=== PATIENT | female | born 1970 | race Hispanic/Latino ===

== ENCOUNTER → 2020-02-19 | Day surgery (SDC) | payer OTHER ==
[~2020-02-19] MED LIST: CALAN SR180 MG PO; OR PHACO EYE KIT ONE; PREOP PHACO EYE KIT ONE
[2020-02-19 11:05] VITALS: BP 104/58
== END | disposition home or self-care (01) ==
LOC: OR 07:56
PROVIDERS: ATTEND Ophthalmology
DX: H25.13 Age-related nuclear cataract, bilateral (principal); I10 Essential (primary) hypertension; Z01.812 Encounter for preprocedural laboratory examination; Z20.828 Contact with and (suspected) exposure to other viral communicable diseases; Z79.899 Other long term (current) drug therapy
CPT/HCPCS: 66984; U0002

== ENCOUNTER → 2020-03-05 | Day surgery (SDC) | payer OTHER ==
[2020-03-05 15:37] VITALS: BP 110/71
== END | disposition home or self-care (01) ==
LOC: OR 11:50
PROVIDERS: ATTEND Ophthalmology
DX: H25.12 Age-related nuclear cataract, left eye (principal); I10 Essential (primary) hypertension; Z01.812 Encounter for preprocedural laboratory examination; Z20.828 Contact with and (suspected) exposure to other viral communicable diseases
CPT/HCPCS: 66984; U0002; V2632

== ENCOUNTER 2022-05-17 16:06 | Emergency (ER) | payer OTHER ==
[~2022-05-17] VITALS: Ht 149.9 cm; Wt 68.0 kg
[~2022-05-17 16:06] MED LIST changes: -OR PHACO EYE KIT ONE; -PREOP PHACO EYE KIT ONE
[2022-05-17] MEDS ORDERED: METRONIDAZOLE 500MG/NS 100ML 100 ML IV STA (16:27)
[2022-05-17] MEDS ORDERED: SODIUM CHLORIDE 0.9% 1000ML 1,000 ML IV STA (16:31)
[2022-05-17] MEDS ORDERED: ONDANSETRON HCL INJ 2MG/ML 2ML 2 MG/ML VIAL IV STA (16:32)
[2022-05-17] MEDS ORDERED: CEFTRIAXONE 1 GM VIAL IM ONE (16:45)
[2022-05-17] MEDS ORDERED: Morphine 4mg INJECTION 4 MG/ML INJ IV ONE (16:45)
[2022-05-17 16:49] LABS: BASOPHILS % 0.1 % (0.0-1.0); EOSINOPHILS % 0.5 % (0.0-6.0); HEMATOCRIT 45.5 % (34.2-44.1); HEMOGLOBIN 14.7 g/dL (12.0-16.0); LYMPHOCYTES # (AUTO) 0.7 (1.0-3.2); LYMPHOCYTES % 7.7 % (18.0-39.1); MEAN CORPUSCULAR HEMOGLOBIN 29.9 pg (28-32); MEAN CORPUSCULAR HGB CONC 32.3 g/dL (31-35); MEAN CORPUSCULAR VOLUME 92.7 fL (81-99); MONOCYTES # (AUTO) 0.6 (0.2-0.8); MONOCYTES % 6.9 % (4.4-11.3); NEUTROPHILS # (AUTO) 7.4 (2.1-6.9); NEUTROPHILS % 84.7 % (38.7-80.0); PLATELET COUNT 224 x10e3/uL (140-360); RED BLOOD COUNT 4.91 x10e6/uL (3.6-5.1); RED CELL DISTRIBUTION WIDTH 13.4 % (11.7-14.4)
[2022-05-17 17:00] LABS: ANION GAP 14.5 mmol/L (8-16); BLOOD UREA NITROGEN 17 mg/dL (7-26); BUN/CREATININE RATIO 25 (6-25); CALCIUM 8.4 mg/dL (8.4-10.2); CARBON DIOXIDE 27 mmol/L (22-29); CHLORIDE 104 mmol/L (98-107); CREATINE KINASE 71 IU/L (29-168); CREATININE, SERUM 0.69 mg/dL (0.57-1.11); GLUCOSE 110 mg/dL (74-118); POTASSIUM 3.5 mmol/L (3.5-5.1); SODIUM 142 mmol/L (136-145)
[2022-05-17 17:10] LABS: ALBUMIN 4.1 g/dL (3.5-5.0); BILIRUBIN,DIRECT 0.2 mg/dL (0.0-0.5)
[2022-05-17] MEDS ORDERED: IOPAMIDOL 370 MG/ML 100 ML INFUS..BTL INJ ONE (17:20)
[2022-05-17 17:50] LABS: CLARITY,URINE SL CLOUDY (CLEAR); COLOR,URINE YELLOW (YELLOW); KETONES,URINE 2+ (NEGATIVE); LEUKOCYTE ESTERASE ,URINE NEGATIVE (NEGATIVE); NITRITE,URINE NEGATIVE (NEGATIVE); PROTEIN,URINE DIPSTICK TRACE (NEGATIVE)
[2022-05-17 17:51] LABS: URINE UROBILINOGEN 0.2 mg/dL (0.2 - 1)
[2022-05-17 17:59] LABS: BACTERIA,URINE RARE /HPF; EPITHELIAL CELLS,URINE MODERATE /LPF; RBC,URINE 0-5 /HPF (0-5)
[2022-05-17] MEDS ORDERED: METRONIDAZOLE500 MG PO (18:25)
[2022-05-17] MEDS ORDERED: ONDANSETRON ODT4 MG PO (18:25)
[2022-05-17] MEDS ORDERED: CIPRO500 MG PO (18:25)
[2022-05-17 18:37] VITALS: BP 134/78
== END 2022-05-17 18:41 | disposition home or self-care (01) ==
LOC: ER 16:17
DX: A09 Infectious gastroenteritis and colitis, unspecified (principal); I10 Essential (primary) hypertension; R00.0 Tachycardia, unspecified; Z20.822 Contact with and (suspected) exposure to COVID-19; K21.9 Gastro-esophageal reflux disease without esophagitis; K80.20 Calculus of gallbladder without cholecystitis without obstruction
CPT/HCPCS: 36415; 74177; 80048; 80076; 81001; 82550; 82553; 83605; 83690; 83735; 84484; 85025; 87040; 87086; 93005; 99284; J0696; J2270; J2405; J7030; Q9967; U0002

== ENCOUNTER → 2023-10-22 | Day surgery (SDC) | payer BC ==
[~2023-10-22] MED LIST changes: +BENZONATATE100 MG PO; +BROMFED DM COU118 ML PO; +CIPRO500 MG PO; +IBUPROFEN800 MG PO; +LIDOCAINE HCL 2% LOCAL INJ 5 ML SDV VIAL INJ ONE; +LIPITOR10 MG PO; +METRONIDAZOLE500 MG PO; +ONDANSETRON ODT4 MG PO; +PANTOPRAZOLE SO40 MG PO; +PREDNISONE20 MG PO; +PROBIOTIC & AC1 EACH PO; +PROPOFOL IV EMULSION 10 MG/ML 20 ML VIAL ONE; +ZITHROMAX500 MG PO
[2023-10-22] MEDS: LACTATED RINGER'S 1,000 ML ONE (09:53)
[2023-10-22 11:25] VITALS: TEMP 97.5
[2023-10-22 11:45] VITALS: BP 110/71; PULSE 74; RESP 18; O2SAT 99
== END | disposition home or self-care (01) ==
LOC: OR 09:32
PROVIDERS: ATTEND Internal Medicine Gastroenterology
DX: Z12.11 Encounter for screening for malignant neoplasm of colon (principal); D12.3 Benign neoplasm of transverse colon; K59.00 Constipation, unspecified; K62.5 Hemorrhage of anus and rectum; K57.30 Diverticulosis of large intestine without perforation or abscess without bleeding; K64.1 Second degree hemorrhoids; K31.7 Polyp of stomach and duodenum; K29.70 Gastritis, unspecified, without bleeding; R13.10 Dysphagia, unspecified; K21.9 Gastro-esophageal reflux disease without esophagitis; K44.9 Diaphragmatic hernia without obstruction or gangrene; J45.909 Unspecified asthma, uncomplicated; I49.1 Atrial premature depolarization; I10 Essential (primary) hypertension; Z01.810 Encounter for preprocedural cardiovascular examination; Z79.899 Other long term (current) drug therapy; Z68.33 Body mass index [BMI] 33.0-33.9, adult; Z80.0 Family history of malignant neoplasm of digestive organs
CPT/HCPCS: 45384; 93005; J2001; J2704; J7121; 45378

== ENCOUNTER → 2024-02-24 | Outpatient (REF) | payer BC ==
[~2024-02-24] MED LIST changes: -LIDOCAINE HCL 2% LOCAL INJ 5 ML SDV VIAL INJ ONE; -PROPOFOL IV EMULSION 10 MG/ML 20 ML VIAL ONE; +VENTOLIN HFA18 GM INH
== END ==
LOC: RAD 12:55
PROVIDERS: ATTEND Nurse Practitioner Family
DX: J45.909 Unspecified asthma, uncomplicated (principal); R05.9 Cough, unspecified; E66.9 Obesity, unspecified
CPT/HCPCS: 71046

== ENCOUNTER → 2024-06-28 | Outpatient (REF) | payer BC | LOC: RESP 09:43 → EDSTATUS 10:00 | PROVIDERS: ATTEND Internal Medicine | DX: R05.9 Cough, unspecified (principal); J30.9 Allergic rhinitis, unspecified; E66.9 Obesity, unspecified | CPT/HCPCS: 94060; 94727; 94729 ==